=== PATIENT | male | born 1980 | race Caucasian/White ===

== ENCOUNTER 2019-06-02 09:01 | Emergency (ER) | payer BC ==
[~2019-06-02] VITALS: Ht 190.5 cm; Wt 88.2 kg
[2019-06-02] MEDS ORDERED: normal saline 1000ML IV soln IVB ONE (09:20)
[2019-06-02] MEDS ORDERED: ondansetron/PF 4mg/2ml inj IV ONE (09:20)
[2019-06-02] MEDS ORDERED: morphine 4 MG/ML inj SYRINge IV ONE (09:20)
[2019-06-02 09:28] LABS: BASOPHILS % (AUTO) 0.2 % (0-1); EOSINOPHILS % (AUTO) 0.5 % (0-6); HEMATOCRIT 46.5 % (42.0-52.0); HEMOGLOBIN 16.2 g/dl (14.0-17.9); LYMPHOCYTES # (AUTO) 1.9 X10'3 (1.1-4.8); LYMPHOCYTES % (AUTO) 20.5 % (21-51); MEAN CORPUSCULAR HEMOGLOBIN 31.4 PG (27.0-31.0); MEAN CORPUSCULAR HGB CONC 34.8 g/dL (33.0-36.5); MEAN CORPUSCULAR VOLUME 90.2 FL (78-98); MEAN PLATELET VOLUME 7.1 FL (7.4-10.4); MONOCYTES # (AUTO) 0.7 X10'3 (0-0.9); MONOCYTES % (AUTO) 7.2 % (2-12); NEUTROPHILS # (AUTO) 6.5 X10'3 (1.8-7.7); NEUTROPHILS % (AUTO) 71.6 % (42-75); PLATELET COUNT 315 X10'3 (140-440); RED BLOOD COUNT 5.16 X10'6 (4.70-6.10); RED CELL DISTRIBUTION WIDTH 12.8 % (11.5-14.5); WHITE BLOOD COUNT 9.1 X10'3 (4.5-11.0)
[2019-06-02 09:45] LABS: ALANINE AMINOTRANSFERASE 95 U/L (12-78); ALBUMIN 4.5 G/DL (3.4-5.0); ALBUMIN/GLOBULIN RATIO 1.2 (1.1-1.5); ALKALINE PHOSPHATASE 53 IU/L (46-116); ANION GAP 18 (8-16); ASPARTATE AMINO TRANSFERASE 31 U/L (10-37); BILIRUBIN,TOTAL 0.7 MG/DL (0.1-1.0); BLOOD UREA NITROGEN 12 MG/DL (7-18); BUN/CREATININE RATIO 9.4 (5.4-32.0); CALCIUM 8.8 MG/DL (8.5-10.1); CHLORIDE 104 MMOL/L (99-107); CREATININE 1.27 MG/DL (0.60-1.10); GLUCOSE 176 MG/DL (70-104); SODIUM 141 MMOL/L (135-145); TOTAL CARBON DIOXIDE 18.7 MMOL/L (24-32); TOTAL PROTEIN 8.2 G/DL (6.4-8.2); eGFR 63 ML/MIN
[2019-06-02 09:46] LABS: POTASSIUM 2.9 MMOL/L (3.5-5.1)
[2019-06-02] MEDS ORDERED: potassium Cl 10 mEq/100mL bag IV ONE (09:50)
[2019-06-02] MEDS ORDERED: POTA10TA15 PO (10:04)
--- NOTE | 2019-06-02 10:27 | NUR ---
imaging technician at bedside transporting pt to CT.
[2019-06-02] MEDS ORDERED: HYDR-4353 PO (10:57)
[2019-06-02] MEDS ORDERED: FLO0.4C PO (10:57)
[2019-06-02] MEDS ORDERED: IBUP-1986 PO (10:57)
[2019-06-02] MEDS ORDERED: tamsulosin 0.4mg capsule PO ONE (11:00)
[2019-06-02] MEDS ORDERED: ketorolac trometh. 30mg/ml inj. IV ONE (11:00)
--- NOTE | 2019-06-02 11:00 | NUR ---
DR. MATHIS AT BEDSIDE UPDATING PLAN OF CARE TO PT RE: ACUTE KIDNEY STONE DX. PT IS VERBALIZING UNDERSTANDING.
[2019-06-02 12:05] VITALS: BP 120/78
== END 2019-06-02 12:07 | disposition home or self-care (01) ==
LOC: ER 09:01
DX: R10.11 Right upper quadrant pain (principal); R11.2 Nausea with vomiting, unspecified; E87.6 Hypokalemia; Z87.442 Personal history of urinary calculi; Z79.899 Other long term (current) drug therapy
CPT/HCPCS: 36415; 74176; 80053; 85025; 85610; 93005; 96365; 96366; 96375; 99284; J1885; J2270; J2405; J3480; J7030